=== PATIENT | female | born 1990 | race Two or more races ===

== ENCOUNTER 2018-06-12 03:03 | Emergency (ER) | payer SELFPAY ==
[~2018-06-12] VITALS: Ht 170.2 cm; Wt 59.0 kg
[2018-06-12] MEDS ORDERED: KETOROLAC 30 MG/1 ML ONE (03:51)
[2018-06-12] MEDS ORDERED: KETOROLAC 30 MG/1 ML IM ONE (04:00)
[2018-06-12 05:13] VITALS: BP 120/74
[2018-06-12 07:33] LABS: MICROSCOPIC INDICATED
[2018-06-12 07:42] LABS: CULTURE INDICATED? YES
== END 2018-06-12 08:17 | disposition home or self-care (01) ==
LOC: ED 08:00
DX: G89.11 Acute pain due to trauma (principal); M25.561 Pain in right knee; M79.661 Pain in right lower leg; F17.210 Nicotine dependence, cigarettes, uncomplicated; X58.XXXA Exposure to other specified factors, initial encounter; Y93.89 Activity, other specified; Y92.89 Other specified places as the place of occurrence of the external cause; Y99.8 Other external cause status
CPT/HCPCS: 36415; 73564; 73590; 76801; 81001; 81025; 84702; 86900; 87077; 87086; 96372; 99285; J1885; 87186

== ENCOUNTER 2018-07-09 15:44 | Emergency (ER) | payer MEDICAID ==
[2018-07-09 15:53] VITALS: BP 98/60
== END 2018-07-09 18:36 | disposition home or self-care (01) ==
LOC: ED 18:30
DX: O36.8120 Decreased fetal movements, second trimester, not applicable or unspecified (principal); O99.332 Smoking (tobacco) complicating pregnancy, second trimester; Z3A.16 16 weeks gestation of pregnancy
CPT/HCPCS: 76815; 99284